=== PATIENT | female | born 1950 | race Caucasian/White ===

== ENCOUNTER → 2020-09-09 | Outpatient (CLI) | payer OTHER ==
[~2020-09-09] MED LIST: FLEXERIL 10 MG10 MG PO; VALTREX1000 MG PO
== END ==
LOC: RAD 11:45
DX: T14.8XXA Other injury of unspecified body region, initial encounter (principal); L08.9 Local infection of the skin and subcutaneous tissue, unspecified; M79.672 Pain in left foot
CPT/HCPCS: 73630

== ENCOUNTER → 2021-01-10 | Outpatient (CLI) | payer OTHER | LOC: KOH-I 12:52 | DX: M79.89 Other specified soft tissue disorders (principal) | CPT/HCPCS: 93971 ==

== ENCOUNTER → 2021-03-20 | Outpatient (CLI) | payer OTHER | LOC: EXRD 13:36 | DX: E04.2 Nontoxic multinodular goiter (principal) | CPT/HCPCS: 76536 ==